=== PATIENT | female | born 1980 | race Caucasian/White ===

== ENCOUNTER 2024-03-31 23:23 | Emergency (ER) | payer BC ==
[2024-04-01 00:54] LABS: Specific Gravity 1.024 (1.005-1.030)
[2024-04-01 01:01] LABS: ALT/SGPT 35 U/L (13-56); AST/SGOT 39 U/L (15-37); Albumin 3.8 g/dL (3.4-5.0); Albumin/Globulin Ratio 0.9 (1.1-1.8); Alkaline Phosphatase 111 U/L (45-117); BUN Blood Urea Nitrogen 15 mg/dL (7-18); Bicarbonate 26 mEq/L (21-32); Globulin 4.2 g/dL (2.3-3.5); Glomerular Filtration Rate 63 ml/min (=/>90); Glucose Level 105 mg/dL (74-106); Lipase 41 U/L (13-75); Sodium Level 140 mEq/L (136-145)
[2024-04-01 01:02] LABS: Absolute Basophils 0.1 K/uL (0-0.5); Absolute Eosinophils 1.8 K/uL (0-0.5); Absolute Lymphocytes (CBC) 3.4 K/uL (0.7-4.9); Absolute Monocytes 0.7 K/uL (0.1-1.3); Absolute Neutrophil 5.1 K/uL (1.8-8.0); Basophils % 1.2 % (0-1.3); Hematocrit 37.3 % (36.0-45.0); Hemoglobin 12.6 g/dL (12.0-15.0); Lymphocytes % 30.7 % (15.3-44.8); MCH 29.2 pg (27.0-35.0); MCHC 33.9 g/dL (32.0-36.0); MCV 86.3 fL (80-100); MPV 10.3 fL (7.6-11.3); Monocytes % 6.1 % (3.3-12.3); Platelets 160 thou/uL (152-406); RBC Red Blood Cell Count 4.32 M/uL (3.86-4.86); Red Cell Distribution Width 13.9 % (12.1-15.2)
[2024-04-01 01:06] LABS: Bilirubin Total < 0.2 mg/dL (0.2-1.0)
[2024-04-01 01:09] LABS: Calcium Oxalate Crystals- Ur Moderate /HPF (None Seen); Specific Gravity 1.024 (1.005-1.030); Sqamous Epithelial <5 /HPF (None Seen); Urine Bacteria <20 /HPF (<20); Urine Bilirubin NEGATIVE (Negative); Urine Blood Negative (Negative); Urine Clarity Extremely Turbid (Clear); Urine Color Yellow (Yellow); Urine Culture Reflex Order REFLEXED; Urine Glucose NEGATIVE (Negative); Urine Ketones NEGATIVE (Negative); Urine Microscopic Reflex YN ORDER UMIC; Urine Mucus Slight /HPF (None Seen); Urine Nitrite NEGATIVE (Negative); Urine Protein NEGATIVE (Negative); Urine Urobilinogen Normal (Normal); Urine WBC 20-50 /HPF (<5); Urine pH 6.5 (5.0-7.0)
[2024-04-01 02:21] LABS: Blood Morphology Comment NOT SEEN (NOT SEEN); Platelet Estimate ADEQ; White Blood Cell Scan OK (OK)
--- NOTE | 2024-04-01 02:41 | ER ---
Nurse's Notes [facility] Name: Johanna Cummings Age: 43 yrs Sex: Female : 1980 Arrival Date: 03/31/2024 Time: 23:23 Bed 8 Private MD: Diagnosis: Abdominal distension (gaseous) Presentation: 04/01 00:09 Chief complaint: Patient states: Stomach keeps getting pressure and tight. Coronavirus vc1 screen: Client denies travel out of the [place] in the last 14 days. At this time, the client does not indicate any symptoms associated with coronavirus-19. Ebola Screen: Patient negative for fever greater than or equal to 101.5 degrees Fahrenheit, and additional compatible Ebola Virus Disease symptoms Patient denies exposure to infectious person. Patient denies travel to an Ebola-affected area in the 21 days before illness onset. No symptoms or risks identified at this time. Initial Sepsis Screen: Does the patient meet any 2 criteria? No. Patient's initial sepsis screen is negative. Does the patient have a suspected source of infection? No. Patient's initial sepsis screen is negative. Risk Assessment: Do you want to hurt yourself or someone else? Patient reports no desire to harm self or others. Onset of symptoms is unknown. Care prior to arrival: None. Activity prior to arrival: None. Mechanism of Injury: No Mechanism of Injury. Transition of care: patient was not received from another setting of care. 00:09 Method Of Arrival: Ambulatory vc1 00:09 Acuity: JACKELYN 3 vc1 00:10 Chief complaint: Patient states: faint pos test plus neg test, swelling and spots to vc1 right leg distention in abdomen. Triage Assessment: 00:13 General: Appears in no apparent distress. comfortable, Behavior is calm, cooperative, vc1 appropriate for age. Pain: Denies pain. EENT: No deficits noted. No signs and/or symptoms were reported regarding the EENT system. Neuro: Level of Consciousness is awake, alert, obeys commands, Oriented to person, place, time, situation, Appropriate for age. Cardiovascular: No deficits noted. Respiratory: Airway is patent Respiratory effort is even, unlabored, Respiratory pattern is regular, symmetrical. : Reports vaginal bleeding that is spotting after sex; spotting 2 weeks ago. Derm: Skin is intact, is healthy with good turgor, Skin is dry, Skin is normal, Skin temperature is warm. 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 - Infectious Disease History:: Denies. - Social history:: Smoking status: Patient reports the use of cigarette tobacco products, smokes one pack cigarettes per day. Screenin:12 [facility] ED Fall Risk Assessment (Adult) History of falling in the last 3 months, vc1 including since admission No falls in past 3 months (0 pts) Confusion or Disorientation No (0 pts) Intoxicated or Sedated No (0 pts) Impaired Gait No (0 pts) Mobility Assist Device Used No (0 pt) Altered Elimination No (0 pt) Score/Fall Risk Level 0 - 2 = Low Risk Oriented to surroundings, Maintained a safe environment, Educated pt \\T\\ family on fall prevention, incl call for assistance when getting out of bed. Abuse screen: Denies threats or abuse. Nutritional screening: No deficits noted. Tuberculosis screening: No symptoms or risk factors identified. Assessment: 02:09 General: Appears in no apparent distress. comfortable, well groomed, well developed, jh8 well nourished. Pain: Denies pain. Neuro: Level of Consciousness is awake, alert, obeys commands, Oriented to person, place, time, situation, Appropriate for age. Cardiovascular: Capillary refill < 3 seconds is brisk Patient's skin is warm and dry. Rhythm is regular. Respiratory: Airway is patent Trachea midline Respiratory effort is even, unlabored, Respiratory pattern is regular, symmetrical. GI: Abdomen is flat, non-distended, denies pain, reports "discomfort". : No deficits noted. Musculoskeletal: No deficits noted. Vital Signs: 00:12 Weight 83.91 kg; Height 5 ft. 5 in. ; Pain 0/10; vc1 00:14 BP 107 / 65; Pulse 69; Resp 15; Temp 96.6; Pulse Ox 100% ; vc1 02:46 BP 118 / 68; Pulse 74; Resp 18; Temp 98.6; Pulse Ox 99% ; Pain 0/10; jh8 00:12 Body Mass Index 30.79 (83.91 kg, 165.1 cm) vc1 00:12 Pain Scale: Adult vc1 02:46 Pain Scale: Adult [facility] ED Course: 03/31 23:26 Patient arrived in ED. ra3 23:27 Norman Mallory MD is Attending Physician. ec2 04/01 00:10 Triage completed. vc1 00:12 Arm band placed on right wrist. EKG completed in triage. Results shown to MD. EKG vc1 completed in triage. Results shown to MD. 01:20 CT Abd/Pelvis - Without Contrast In Process Unspecified. EDMS 02:45 Patient has correct armband on for positive identification. Placed in gown. Bed in low jh8 position. Call light in reach. Side rails up X 1. Provided Education on: follow up . 02:45 No provider procedures requiring assistance completed. IV discontinued. jh8 Administered Medications: No medications were administered Medication: 00:13 VIS not applicable for this client. vc1 Outcome: 02:41 Discharge ordered by . ec2 02:45 Discharged to home ambulatory, 8 02:45 Condition: good 02:45 Discharge instructions given to patient, Instructed on discharge instructions, follow up and referral plans. Demonstrated understanding of instructions, follow-up care, 02:46 Patient left the ED. 8 Signatures: Dispatcher [employer] Mago Chan RN RN vc1 Norman Mallory MD MD ec2 Aislinn Diaz 3 Joseph Nichols, RN RN 8
--- NOTE | 2024-04-01 02:41 | EDPHYS ---
Physician Documentation [facility] Name: Johanna Cummings Age: 43 yrs Sex: Female : 1980 Arrival Date: 03/31/2024 Time: 23:23 Bed 8 Private MD: ED Physician Norman Mallory HPI: 04/01 00:18 This 43 yrs old Female presents to ER via Ambulatory with complaints of Leg ec2 Swelling, Abdominal Problem. 00:18 Patient arrives today for evaluation of abdominal distention. Patient reports that she ec2 is concerned she is , states she has irregular periods, LMP was greater than a year ago. States that she had may have had some positive at-home testing. Patient reports otherwise she has been having some bloating. Denies any alcohol use. Also was concerned that she has some right lower extremity swelling. Patient reports that she also had noticed some spots in the bilateral lower extremities.. 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 - Infectious Disease History:: Denies. - Social history:: Smoking status: Patient reports the use of cigarette tobacco products, smokes one pack cigarettes per day. ROS: 00:18 Constitutional: as per hpi ec2 Exam: 00:18 Constitutional: GEN: NAD Head: atraumatic Eyes: EOMI Ears: External ears are ec2 normal. CV: regular rate, bilateral lower extremities are equal in size, no significant swelling, no calf tenderness appreciated, no edema appreciated, intact distal neurovascular status. LUNGS: no respiratory distress ABD: non-distended SKIN: Small right upper leg spider angiomata noted on the bilateral lower extremities. MSK: no evidence of trauma Vital Signs: 00:12 Weight 83.91 kg; Height 5 ft. 5 in. ; Pain 0/10; vc1 00:14 BP 107 / 65; Pulse 69; Resp 15; Temp 96.6; Pulse Ox 100% ; vc1 02:46 BP 118 / 68; Pulse 74; Resp 18; Temp 98.6; Pulse Ox 99% ; Pain 0/10; jh8 00:12 Body Mass Index 30.79 (83.91 kg, 165.1 cm) vc1 00:12 Pain Scale: Adult vc1 02:46 Pain Scale: Adult jh8 MDM: 03/31 23:58 Patient medically screened. ec2 04/01 00:18 Data reviewed: vital signs. ED course: Patient arrives today due to concern for leg ec2 swelling as well as abdominal distention. Examination remarkable for well-appearing nontoxic individuals otherwise in no acute distress with a reassuring examination. Will obtain lab work, CT imaging. Will test the patient for as well. Differential includes , liver disease, doubt DVT, doubt intra-abdominal infection. . 01:18 ED course: CBC reassuring. Metabolic profile is nonactionable. Urine is pertinent for ec2 RBCs, leuk esterase present. Does have calcium oxalate present as well. Negative testing. Lipase within normal ranges. Pending CT imaging. . 02:41 ED course: CT abdomen pelvis without acute actionable process. Will discharge home. ec2 Return precautions given . 18 00:14 Order name: CBC with Diff; Complete Time: 02:41 ec2 18 00:14 Order name: CMP; Complete Time: 01:17 ec2 18 00:14 Order name: Lipase; Complete Time: 01:17 ec2 18 00:14 Order name: Urinalysis w/ reflexes; Complete Time: 01:17 ec2 18 00:53 Order name: Test, Urine; Complete Time: 01:17 EDMS 04/01 01:12 Order name: Urine Culture EDMS 04/01 02:22 Order name: CBC Smear Scan; Complete Time: 02:41 EDMS 04/01 00:14 Order name: CT Abd/Pelvis - Without Contrast ec2 04/01 00:14 Order name: IV Saline Lock; Complete Time: 00:35 ec2 04/01 00:14 Order name: Labs collected and sent; Complete Time: 00:35 ec2 Administered Medications: No medications were administered Disposition Summary: 04/01/24 02:41 Discharge Ordered Notes: Location: Home ec2 Condition: Stable ec2 Diagnosis - Abdominal distension (gaseous) ec2 Followup: ec2 - With: Private Physician - When: - Reason: Re-evaluation by your physician Discharge Instructions: - Discharge Summary Sheet ec2 - Abdominal Pain, Adult ec2 Forms: - Medication Reconciliation Form ec2 - Antibiotic Education ec2 - Prescription Opioid Use ec2 - Patient Portal Instructions ec2 - Leadership Thank You Letter ec2 Signatures: Dispatcher [employer] Mago Chan RN RN vc1 Norman Mallory MD MD ec2 Corrections: (The following items were deleted from the chart) 00:53 00:14 TEST, SERUM+[id number] ordered. EDNM EDMS
[2024-04-01 03:24] VITALS: BP 118/68; TEMP 98.6; O2SAT 99
--- NOTE | 2024-04-03 11:41 | RAD REPORT ---
EXAM DESCRIPTION: CT - Abdomen Pelvis Wo Contrast - 04/01/2024 1:19 am CLINICAL HISTORY: 43 years, Female, Abdominal pain. COMPARISON: None. TECHNIQUE: Noncontrast images of the abdomen and pelvis were performed from the lung bases to the is chial tuberosities. In addition multiplanar reformats in the coronal and sagittal plane were obtained and reviewed. An individualized dose optimization technique, Automated Exposure Control, was utilized for the perfo rmed procedure. FINDINGS: The lack of IV contrast limits evaluation of solid organs, subtle lesions cannot be exclud ed. Lung bases: The lung bases demonstrate to be clear. Liver: Grossly the unopacified liver demonstrates to be normal, no focal lesions are identified. Hepa tic granulomas. Gallbladder: The gallbladder is contracted most likely related to lack of fasting. No significant yasmin ling defects in/or abnormality is identified. Adrenal glands: Grossly the unopacified adrenal glands demonstrate to be normal. Pancreas: Grossly the unopacified pancreas demonstrate to be normal Spleen: The spleen demonstrate to be normal. Splenic granulomas. Kidneys: Grossly the unopacified kidneys demonstrate to be within normal limits. There is no eviden ce for nephrolithiasis and/or hydronephrosis. GI: Grossly the unopacified stomach demonstrate to be distended with food elements. Otherwise the sto mach, small bowel and large bowel demonstrate to be within normal limits. No evidence for bowel dilat ation and/or free air. The appendix is normal. The large bowel demonstrate presence of fecal mild fec al residue suggesting the possibility of mild fecal stasis. Minimal diverticulosis left side colon. : The urinary bladder demonstrate to be unremarkable. Genitalia: The uterus demonstrate to be within normal limits. Surgical clips are identified within riaz th sides of the uterus/fallopian tubes corresponding to tubal ligation. There are normal adnexal stru ctures. Abdominal aorta: The aorta demonstrate demonstrate to be within normal limits. Retroperitoneum: There is no retroperitoneal lymphadenopathy. There is no evidence for ascites and/or abnormal fluid collections. Bones: The bony structures demonstrate to be within normal limits. No evidence for compression deform ity and/or significant skeletal lesions. Soft tissues: The rest of the soft tissue and bony structures are within normal limits. IMPRESSION: No evidence for nephrolithiasis and/or hydronephrosis. Mild fecal stasis. Minimal diverticulosis left side colon. Hepatic and splenic granulomas. Status post tubal ligation. Electronically signed by: Anival Huff MD 04/01/2024 02:37 AM CDT RP Due to temporary technical issues with the PACS/Fluency reporting system, reports are being signed by the in house radiologist without review as a courtesy to ensure prompt reporting. The interpreting r adiologist is fully responsible for the content of the report.
== END 2024-04-01 02:46 | disposition home or self-care (01) ==
LOC: ER 23:23
DX: R14.0 Abdominal distension (gaseous) (principal); F17.210 Nicotine dependence, cigarettes, uncomplicated
CPT/HCPCS: 36415; 74176; 80053; 81001; 81025; 83690; 85025; 87086; 87088; 99283